=== PATIENT | female | born 1990 | race Two or more races ===

== ENCOUNTER → 2019-11-07 | Outpatient (CLI) | payer OTHER | END | disposition home or self-care (01) | LOC: PRENATAL 09:24 | DX: O36.80X1 Pregnancy with inconclusive fetal viability, fetus 1 (principal); Z36.89 Encounter for other specified antenatal screening ==

== ENCOUNTER → 2020-01-02 | Outpatient (CLI) | payer OTHER | END | disposition home or self-care (01) | LOC: PRENATAL 09:16 | PROVIDERS: ATTEND Obstetrics & Gynecology | DX: O35.0XX1 Maternal care for (suspected) central nervous system malformation in fetus, fetus 1 (principal); O35.3XX1 Maternal care for (suspected) damage to fetus from viral disease in mother, fetus 1 ==

== ENCOUNTER 2020-05-06 12:15 | Inpatient (IN) | payer OTHER ==
[~2020-05-06] VITALS: Ht 154.9 cm; Wt 2.7 kg
[2020-05-20] MEDS ORDERED: PRENATAL CAPLE1 EAC1 PO (15:31)
[2020-05-24] MEDS ORDERED: IBUPROFEN800 MG PO (12:54)
== END 2020-05-24 14:18 | disposition home or self-care (01) | DRG 788 ==
LOC: LDR 05-20 13:06 → OB/GYN 05-20 15:17 → LDR 05-20 15:26 → SURH 05-21 12:15 → O/R 05-22 10:50 → OB/GYN 05-22 13:12
PROVIDERS: ADMIT Obstetrics & Gynecology; ATTEND Obstetrics & Gynecology
PROC: 4A1HXFZ Monitoring of Products of Conception, Cardiac Rhythm, External Approach (ICD-10-PCS; 2020-05-20)
PROC: 3E0P7VZ Introduction of Hormone into Female Reproductive, Via Natural or Artificial Opening (ICD-10-PCS; 2020-05-21)
PROC: 10D00Z1 Extraction of Products of Conception, Low, Open Approach (ICD-10-PCS; principal; 2020-05-22 10:00)
DX: O62.1 Secondary uterine inertia (principal); O76 Abnormality in fetal heart rate and rhythm complicating labor and delivery; O99.820 Streptococcus B carrier state complicating pregnancy; Z3A.40 40 weeks gestation of pregnancy; Z37.0 Single live birth; Z20.828 Contact with and (suspected) exposure to other viral communicable diseases